=== PATIENT | male | born 1940 | race African-American/Black ===

== ENCOUNTER 2020-07-22 15:13 | Inpatient (IN) ==
[2020-07-22 15:52] LABS: Basophils % 0.2 % (0.0-0.8); Eosinophils % 0.5 % (0.00-10.9); Hematocrit 36.8 VOL% (42.0-52.0); Hemoglobin 12.5 GM/DL (14.0-18.0); Immature Granulocytes % 0.2 %; Immature Granulocytes Absolute 0.01 #; Lymphocytes # 1.6 10*3/uL (1.4-4.0); Lymphocytes % 37.4 % (21.2-54.2); Mean Corpuscular Volume 82.3 FL (87-102); Mean Platelet Volume 11.4 FL (9.6-12.0); Monocytes % 6.4 % (1.7-12.7); Neutrophils % 55.3 % (38.7-73.9); Platelet Count 229 T/CUMM (130-400); Red Blood Count 4.47 MC/CUMM (3.8-5.5); Red Cell Distribution Width 14.8 % (9.3-17.3); White Blood Count 4.4 T/CUMM (4-12)
[2020-07-22 16:03] LABS: Alanine Aminotransferase 11 U/L (16-61); Albumin 4.2 G/DL (3.4-5.0); Alkaline Phosphatase 71 U/L (45-117); Aspartate Amino Transferase 18 U/L (0-37); Blood Urea Nitrogen 26 MG/DL (7-18); Calcium 9.5 MG/DL (8.5-10.1); Carbon Dioxide 29 MMOL/L (21-32); Estimated Glom Filtration Rate 38 ML/MIN; Glucose 140 MG/DL (74-106); Osmolality,Calculated 292.8 MOS/KG (273-304); Potassium 3.2 MMOL/L (3.5-5.1); Sodium 144 MMOL/L (136-145); Total Protein 7.5 G/DL (6.4-8.3)
[2020-07-22] MEDS ORDERED: dilTIAZem Drip 125 MG/125 ML PREMIX IV ONE (16:06)
[2020-07-22] MEDS ORDERED: DILTIAZEM 50 MG/10 ML VIAL IV STA (16:07)
[2020-07-22] MEDS ORDERED: LACTATED RINGERS 1,000 ML IV ONE (16:10)
[2020-07-22] MEDS ORDERED: SODIUM CHLORIDE 0.9% 1,000 ML IV STA (16:16)
[2020-07-22 16:23] LABS: INR 1.1; PT Patient Result 11.9 SECS (9.8-11.9)
[2020-07-22] MEDS: dilTIAZem Drip 125 MG/125 ML PREMIX IV SCH (16:25)
[2020-07-22] MEDS ORDERED: LORazepam 2 MG/1 ML VIAL IV STA (16:44)
[2020-07-22 16:56] LABS: Bacteria,Urine Occasional /HPF (Few); Bilirubin,Urine Negative (Negative); Blood, Urine Negative (Negative); Glucose,Urine (UA) 50 mg/dL (Negative); Hyaline Casts,Urine 8 /LPF (0-3); Ketones,Urine 5 mg/dL (Negative); Mucus,Urine Occasional /LPF (Occasional); Nitrite,Urine Negative (Negative); Protein,Urine 30 MG/DL; Sperm,Urine Occasional /HPF (Negative); Squamous Epithelial Cell,Urine Occasional /HPF (0-10); Urine Appearance CLEAR (Clear); Urine Color Yellow (Yellow); Urine Specific Gravity 1.014 (1.001-1.035)
[2020-07-22 16:57] LABS: Barbiturates Screen,Urine Negative (Negative); Benzodiazepines Screen,Urine Negative (Negative); Cannabinoid Screen,Urine Negative (Negative); Opiate Screen,Urine Negative (Negative); Phencyclidine Screen,Urine Negative (Negative)
[2020-07-22] MEDS ORDERED: METOPROLOL TARTRATE 5 MG/5 ML VIAL IV STA ×2 (17:11→17:49)
[2020-07-22] MEDS ORDERED: ACETAMINOPHEN 325 MG TABLET PO PRN (17:55)
[2020-07-22] MEDS ORDERED: ONDANSETRON 4 MG/2 ML VIAL IV PRN (17:55)
[2020-07-22] MEDS: LACTATED RINGERS 1,000 ML IV SCH (21:20)
[2020-07-22] MEDS: DOCUSATE SODIUM 100 MG CAPSULE PO SCH (21:20)
[2020-07-23 05:50] LABS: Basophils % 0.3 % (0.0-0.8); Eosinophils % 0.3 % (0.00-10.9); Hematocrit 34.5 VOL% (42.0-52.0); Hemoglobin 11.6 GM/DL (14.0-18.0); Immature Granulocytes % 0.3 %; Immature Granulocytes Absolute 0.01 #; Lymphocytes # 1.1 10*3/uL (1.4-4.0); Lymphocytes % 28.7 % (21.2-54.2); Mean Corpuscular HGB Conc 33.6 GM/DL (32-36); Mean Corpuscular Volume 82.3 FL (87-102); Mean Platelet Volume 11.3 FL (9.6-12.0); Neutrophils % 60.4 % (38.7-73.9); Platelet Count 196 T/CUMM (130-400); Red Blood Count 4.19 MC/CUMM (3.8-5.5); Red Cell Distribution Width 14.7 % (9.3-17.3); White Blood Count 3.8 T/CUMM (4-12)
[2020-07-23 06:22] LABS: Albumin 3.8 G/DL (3.4-5.0); Calcium 9.1 MG/DL (8.5-10.1); Osmolality,Calculated 284.1 MOS/KG (273-304); Potassium 3.4 MMOL/L (3.5-5.1); Total Protein 6.9 G/DL (6.4-8.3)
[2020-07-23] MEDS: LACTATED RINGERS 1,000 ML IV SCH ×3 (06:31→18:43)
[2020-07-23] MEDS: clonazePAM 0.5 MG TABLET PO SCH (08:52)
[2020-07-23] MEDS: DOCUSATE SODIUM 100 MG CAPSULE PO SCH ×2 (08:53→20:45)
[2020-07-23] MEDS: POTASSIUM CHLORIDE 10 MEQ TABLET PO SCH (08:53)
[2020-07-23] MEDS: PANTOPRAZOLE 40 MG TABLET PO SCH (08:53)
[2020-07-23] MEDS: SERTRALINE 50 MG TABLET PO SCH (08:53)
[2020-07-23] MEDS: amLODIPine 10 MG TABLET PO SCH (08:53)
[2020-07-23] MEDS: POTASSIUM CHLORIDE 20 MEQ TABLET PO PRN ×3 (08:53→17:40)
[2020-07-23 13:35] LABS: Troponin I < 0.015 NG/ML (0.00-0.045)
[2020-07-23] MEDS: APIXABAN 5 MG TABLET PO SCH ×2 (14:08→20:45)
[2020-07-23 16:15] LABS: Troponin I 0.016 NG/ML (0.00-0.045)
[2020-07-23] MEDS: dilTIAZem Drip 125 MG/125 ML PREMIX IV SCH (18:42)
[2020-07-23] MEDS: ATORVASTATIN 40 MG TABLET PO SCH (20:45)
[2020-07-24] MEDS: LACTATED RINGERS 1,000 ML IV SCH ×2 (03:19→09:55)
[2020-07-24 05:38] LABS: Basophils % 0.4 % (0.0-0.8); Eosinophils # 0.1 10*3/uL (0.0-0.87); Eosinophils % 2.5 % (0.00-10.9); Hematocrit 35.1 VOL% (42.0-52.0); Hemoglobin 11.7 GM/DL (14.0-18.0); Immature Granulocytes % 0.4 %; Immature Granulocytes Absolute 0.01 #; Lymphocytes % 42.2 % (21.2-54.2); Mean Corpuscular HGB Conc 33.3 GM/DL (32-36); Mean Corpuscular Volume 82.4 FL (87-102); Mean Platelet Volume 11.3 FL (9.6-12.0); Monocytes % 8.6 % (1.7-12.7); Neutrophils % 45.9 % (38.7-73.9); Platelet Count 193 T/CUMM (130-400); Red Blood Count 4.26 MC/CUMM (3.8-5.5); Red Cell Distribution Width 14.3 % (9.3-17.3); White Blood Count 2.4 T/CUMM (4-12)
[2020-07-24 05:52] LABS: Osmolality,Calculated 280.4 MOS/KG (273-304); Potassium 4.1 MMOL/L (3.5-5.1)
[2020-07-24 06:00] LABS: Burr Cells Slight; Hypochromasia 1+; Ovalocytes Slight; Platelet Estimate Adequate
[2020-07-24] MEDS: POTASSIUM CHLORIDE 10 MEQ TABLET PO SCH (08:46)
[2020-07-24] MEDS: PANTOPRAZOLE 40 MG TABLET PO SCH (08:46)
[2020-07-24] MEDS: SERTRALINE 50 MG TABLET PO SCH (08:46)
[2020-07-24] MEDS: DOCUSATE SODIUM 100 MG CAPSULE PO SCH ×2 (08:46→21:05)
[2020-07-24] MEDS: QUEtiapine 25 MG TABLET PO SCH ×2 (08:46→21:04)
[2020-07-24] MEDS: FERROUS SULFATE 325 MG TABLET PO SCH (08:46)
[2020-07-24] MEDS: APIXABAN 5 MG TABLET PO SCH ×2 (08:46→21:04)
[2020-07-24] MEDS: clonazePAM 0.5 MG TABLET PO SCH (08:57)
[2020-07-24] MEDS: amLODIPine 10 MG TABLET PO SCH (09:12)
[2020-07-24] MEDS: carvediloL 3.125 MG TABLET PO SCH (12:30)
[2020-07-24] MEDS: ATORVASTATIN 40 MG TABLET PO SCH (21:05)
[2020-07-24] MEDS: ZALEPLON 5 MG CAPSULE PO SCH (21:05)
[2020-07-25 05:51] LABS: Basophils % 0.3 % (0.0-0.8); Eosinophils # 0.1 10*3/uL (0.0-0.87); Eosinophils % 1.9 % (0.00-10.9); Hematocrit 34.3 VOL% (42.0-52.0); Hemoglobin 11.5 GM/DL (14.0-18.0); Immature Granulocytes % 0.3 %; Immature Granulocytes Absolute 0.01 #; Lymphocytes # 1.2 10*3/uL (1.4-4.0); Lymphocytes % 38.8 % (21.2-54.2); Mean Corpuscular HGB Conc 33.5 GM/DL (32-36); Mean Corpuscular Volume 81.7 FL (87-102); Mean Platelet Volume 11.3 FL (9.6-12.0); Monocytes % 8.7 % (1.7-12.7); Platelet Count 197 T/CUMM (130-400); Red Cell Distribution Width 14.5 % (9.3-17.3); White Blood Count 3.1 T/CUMM (4-12)
[2020-07-25 06:18] LABS: Alanine Aminotransferase < 9 U/L (16-61); Albumin 3.4 G/DL (3.4-5.0); Alkaline Phosphatase 60 U/L (45-117); Aspartate Amino Transferase 19 U/L (0-37); Blood Urea Nitrogen 20 MG/DL (7-18); Carbon Dioxide 28 MMOL/L (21-32); Estimated Glom Filtration Rate 62 ML/MIN; Glucose 85 MG/DL (74-106); Osmolality,Calculated 282.3 MOS/KG (273-304); Potassium 3.9 MMOL/L (3.5-5.1); Sodium 141 MMOL/L (136-145); Total Protein 6.3 G/DL (6.4-8.3)
[2020-07-25] MEDS: LACTATED RINGERS 1,000 ML IV SCH (06:18)
[2020-07-25] MEDS: clonazePAM 0.5 MG TABLET PO SCH (08:43)
[2020-07-25] MEDS: DOCUSATE SODIUM 100 MG CAPSULE PO SCH ×2 (08:44→20:31)
[2020-07-25] MEDS: POTASSIUM CHLORIDE 10 MEQ TABLET PO SCH (08:44)
[2020-07-25] MEDS: FERROUS SULFATE 325 MG TABLET PO SCH (08:44)
[2020-07-25] MEDS: QUEtiapine 25 MG TABLET PO SCH ×2 (08:44→20:31)
[2020-07-25] MEDS: SERTRALINE 50 MG TABLET PO SCH (08:44)
[2020-07-25] MEDS: PANTOPRAZOLE 40 MG TABLET PO SCH (08:44)
[2020-07-25] MEDS: APIXABAN 5 MG TABLET PO SCH ×2 (08:44→20:31)
[2020-07-25] MEDS: carvediloL 3.125 MG TABLET PO SCH (08:45)
[2020-07-25] MEDS ORDERED: DILTIAZEM CD 240 MG CAPSULE PO SCH (09:00)
[2020-07-25] MEDS ORDERED: DILTIAZEM CD 120 MG CAPSULE PO SCH (09:50)
[2020-07-25] MEDS: amLODIPine 10 MG TABLET PO SCH ×2 (11:27→12:47)
[2020-07-25] MEDS: ATORVASTATIN 40 MG TABLET PO SCH (20:31)
[2020-07-25] MEDS: ZALEPLON 5 MG CAPSULE PO SCH (20:36)
[2020-07-25] MEDS ORDERED: hydrOXYzine HCL 25 MG TABLET PO SCH (21:00)
[2020-07-25] MEDS ORDERED: MELATONIN 3 MG TABLET PO SCH (21:00)
[2020-07-26] MEDS: LACTATED RINGERS 1,000 ML IV SCH (02:08)
[2020-07-26 05:40] LABS: Basophils % 0.4 % (0.0-0.8); Eosinophils # 0.1 10*3/uL (0.0-0.87); Eosinophils % 1.8 % (0.00-10.9); Hemoglobin 10.8 GM/DL (14.0-18.0); Immature Granulocytes % 0.2 %; Immature Granulocytes Absolute 0.01 #; Lymphocytes # 1.2 10*3/uL (1.4-4.0); Lymphocytes % 26.2 % (21.2-54.2); Mean Corpuscular HGB Conc 33.8 GM/DL (32-36); Mean Corpuscular Volume 81.8 FL (87-102); Mean Platelet Volume 10.8 FL (9.6-12.0); Monocytes % 6.5 % (1.7-12.7); Neutrophils % 64.9 % (38.7-73.9); Platelet Count 178 T/CUMM (130-400); Red Blood Count 3.91 MC/CUMM (3.8-5.5); Red Cell Distribution Width 14.6 % (9.3-17.3); White Blood Count 4.5 T/CUMM (4-12)
[2020-07-26 06:05] LABS: Albumin 3.2 G/DL (3.4-5.0); Bilirubin,Total 0.6 MG/DL (0.2-1.0); Calcium 8.5 MG/DL (8.5-10.1); Osmolality,Calculated 286.1 MOS/KG (273-304); Potassium 3.8 MMOL/L (3.5-5.1)
[2020-07-26 08:05] VITALS: BP 129/69
[2020-07-26] MEDS: amLODIPine 10 MG TABLET PO SCH (08:34)
[2020-07-26] MEDS: clonazePAM 0.5 MG TABLET PO SCH (08:34)
[2020-07-26] MEDS: SERTRALINE 50 MG TABLET PO SCH (08:34)
[2020-07-26] MEDS: APIXABAN 5 MG TABLET PO SCH (08:34)
[2020-07-26] MEDS: QUEtiapine 25 MG TABLET PO SCH (08:34)
[2020-07-26] MEDS: FERROUS SULFATE 325 MG TABLET PO SCH (08:34)
[2020-07-26] MEDS: DOCUSATE SODIUM 100 MG CAPSULE PO SCH (08:34)
[2020-07-26] MEDS: PANTOPRAZOLE 40 MG TABLET PO SCH (08:34)
[2020-07-26] MEDS: POTASSIUM CHLORIDE 10 MEQ TABLET PO SCH (08:34)
[2020-07-26] MEDS ORDERED: LORATADINE 10 MG TABLET PO SCH (09:00)
[2020-07-26] MEDS ORDERED: ASCORBIC ACID 500 MG TABLET PO SCH (09:00)
[2020-07-26] MEDS ORDERED: OMEPRAZOLE 20 MG PO SCH (09:00)
== END 2020-07-26 11:25 | disposition home or self-care (01) | DRG 309 ==
LOC: EDBD → EDUNIT# → N.ED 15:13 → N.EDINP 17:55 → N.TELEN 20:56
PROVIDERS: ADMIT Family Medicine; ATTEND Family Medicine